=== PATIENT | female | born 1990 | race Caucasian/White ===

== ENCOUNTER 2018-07-11 12:03 | Emergency (ER) | payer MEDICAID ==
[~2018-07-11] VITALS: Ht 160 cm; Wt 68.0 kg
[2018-07-11 13:11] VITALS: BP 135/76
== END 2018-07-11 13:11 | disposition home or self-care (01) ==
LOC: ED 12:03
DX: S16.1XXA Strain of muscle, fascia and tendon at neck level, initial encounter (principal); V49.49XA Driver injured in collision with other motor vehicles in traffic accident, initial encounter; Y93.I9 Activity, other involving external motion; Y92.413 State road as the place of occurrence of the external cause; Y99.8 Other external cause status